=== PATIENT | female | born 1970 | race Caucasian/White ===

== ENCOUNTER → 2020-06-11 08:15 | Outpatient (BNVA) | payer BC, SELFPAY | PROVIDERS: PCP Internal Medicine; Referring Provider Internal Medicine; Visit Provider Physician Assistant | DX: E66.3 Overweight (principal); E78.5 Hyperlipidemia, unspecified; N28.9 Disorder of kidney and ureter, unspecified; G47.33 Obstructive sleep apnea (adult) (pediatric); F41.9 Anxiety disorder, unspecified; Z71.3 Dietary counseling and surveillance; Z98.84 Bariatric surgery status; Z68.28 Body mass index [BMI] 28.0-28.9, adult ==

== ENCOUNTER → 2020-06-18 12:03 | Outpatient (BNVA) | payer BC, SELFPAY | PROVIDERS: Visit Provider Physician Assistant | DX: Z76.89 Persons encountering health services in other specified circumstances (principal) ==

== ENCOUNTER → 2020-06-26 07:55 | Outpatient (BNVA) | payer BC, SELFPAY | PROVIDERS: PCP Nurse Practitioner Gerontology; Visit Provider Physician Assistant | DX: Z76.89 Persons encountering health services in other specified circumstances (principal) ==

== ENCOUNTER 2024-05-05 12:55 | Inpatient (IN) | payer OTHER, SELFPAY ==
--- NOTE | ~2024-05-05 | XR_ITS ---
EXAMINATION: XR ABDOMEN KUB CLINICAL INDICATION: Follow-up for small bowel obstruction COMPARISON: CT abdomen and pelvis on 05/05/2024 TECHNIQUE: AP view of the abdomen. FINDINGS: There are multiple prominent small bowel loops throughout the abdomen, though less prominent than on the prior study. There is contrast previously seen within the small bowel is now visualized throughout the colon and rectum. Multiple surgical clips in the upper abdomen. XR/XR KUB IMPRESSION: Improving small bowel obstruction. Contrast seen within the colon. Electronically signed by: Faith Beltre MD 05/06/2024 09:20 AM EDT
--- NOTE | ~2024-05-05 | CT_ITS ---
EXAMINATION: CT CHEST, ABDOMEN, AND PELVIS WITH CONTRAST CLINICAL INFORMATION: Chest pain. Epigastric pain. History of laparoscopic sleeve gastrectomy. COMPARISON: CT abdomen and pelvis from 08/26/2006.. TECHNIQUE: Multidetector volumetric imaging was performed from the thoracic inlet to the pubic symphysis following the administration of 85 mL Omnipaque 350 intravenous contrast. No contrast reaction reported. Sagittal and coronal reformatted images were obtained on the technologist workstation. This CT examination was performed using dose optimization techniques as appropriate, variously including the following: *Automated exposure control. *Adjustment of mA and/or kV according to patient size (this includes techniques or standardized protocols for targeted exams where dose is matched to indication/reason for exam; i.e. extremities or head). *Use of iterative reconstruction technique. DLP: 931 mGy-cm FINDINGS: CHEST: Lungs: No diffuse or focal lung parenchymal abnormalities. No pleural effusion or pneumothorax. The airways remain patent. Mediastinum: The cardiac structures are normal in appearance. No mediastinal free fluid or gas. No pericardial effusion. No hilar, mediastinal, or axillary lymphadenopathy. Coronary artery calcifications: Absent. ABDOMEN/PELVIS: Liver, Biliary Ducts, and Gallbladder: The liver is normal in size and attenuation without focal hepatic lesions or biliary ductal dilatation. The gallbladder is physiologically distended without radiopaque gallstones, pericholecystic fluid, or significant gallbladder wall thickening. Pancreas: The pancreas is normal in appearance. Adrenal Glands: The adrenal glands are normal in appearance. Spleen: The spleen is normal in appearance. Kidneys and Ureters: The kidneys demonstrate symmetric nephrograms without evidence of nephrolithiasis or hydronephrosis. No ureterolithiasis or hydroureter. Urinary Bladder: The urinary bladder is partially distended without focal wall thickening. No bladder calculi are demonstrated. Gastrointestinal System: Changes of prior sleeve gastrectomy. Moderate dilation of the proximal loops of small bowel, measuring up to 3.6 cm in diameter. There is delay in contrast passage through these loops of small bowel. A transition point is demonstrated in an infraumbilical region of midline diastases of the anterior abdominal wall the heart appears to be a site of prior surgery. The small bowel is largely decompressed beyond this point. The colon is normal in appearance without focal wall thickening or pericolonic inflammatory change. Normal appendix. Genitourinary: Partially calcified 2 cm fibroid within the uterine fundus. No additional adnexal soft tissue masses. Intra-abdominal and Retroperitoneal Spaces: Small volume free fluid surrounding the dilated loops of small bowel in the upper abdomen. There are demonstrated discrete peripherally enhancing intra-abdominal fluid collection. No demonstrated intra-abdominal free gas. No mesenteric, retroperitoneal, or inguinal lymphadenopathy. VASCULATURE: The aorta is of normal contour and caliber. MUSCULOSKELETAL: Transitional vertebral anatomy. There is partial lumbarization of S1. Mild multilevel degenerative changes of the spine. No lytic or sclerotic osseous lesions demonstrated. No soft tissue masses demonstrated. CT/CT abdomen pelvis w IV con IMPRESSION: 1. Small bowel obstruction with transition point demonstrated in the infraumbilical region of midline diastases of the anterior abdominal wall. Small volume free fluid surrounding the dilated loops of small bowel in the upper abdomen. No demonstrated discrete peripherally enhancing intra-abdominal fluid collection. 2. No additional acute abnormalities of the chest, abdomen, or pelvis. Electronically signed by: Phoenix Nieves DO 05/05/2024 09:10 PM EDT
[2024-05-05 12:57] VITALS: BP 118/62; PULSE 71; RESP 18; TEMP 36.6; O2SAT 94; BMI 32.1
--- NOTE | 2024-05-05 13:01 | ED.ABDPAIN ---
HPI - Abdominal Pain General Chief Complaint: Abdominal Pain Stated Complaint: abd pain Time Seen by Provider: 05/05/24 13:15 Source: patient and family Mode of arrival: ambulatory Limitations: no limitations History of Present Illness ED Provider: darian HPI narrative: Patient is a 53-year-old female with history of laproscopic sleeve gastrectomy, abdominal hernia repair presenting to the emergency department with complaint of epigastric abdominal pain which began last night. Patient reports that symptoms began after eating 2 large carrots as she is supposed to be on a high-fiber, low-protein diet for kidney disease. This morning pain increased and became more and more severe until it was 10/[address] to the emergency department she developed sudden onset of nausea and pulled over, vomited clear liquid. States this significantly reduced her pain. Upon arriving to the emergency department she immediately had 1 episode of diarrhea which she describes as ?straight water. ? She states she is scheduled for a barium swallow this week due to ongoing heartburn and regurgitation since having her sleeve gastrectomy. Denies fever. Denies sick contacts. States she only has pain now with palpation. Denies current nausea. MD elicited complaint: abdominal pain Pertinent past history: other Onset (ago): hour(s) Pain Consistency: now resolved Location: epigastric Severity: severe Quality: cramping Radiation: none Migration to: no migration Relieving factors: vomiting Related Data Home Medications ?Medication ?Instructions ?Recorded ?Confirmed fluoxetine 10 mg capsule 10 mg PO DAILY 06/11/20 06/18/20 Allergies Allergy/AdvReac Type Severity Reaction Status Date / Time amoxicillin [AMOXICILLIN] Allergy Unknown RASH Verified 05/05/24 13:02 Sulfa (Sulfonamide Allergy Unknown RASH Verified 05/05/24 13:02 Antibiotics) [SULFA (SULFONAMIDE ANTIBIOTICS)] amoxicillin Allergy Unknown rash Uncoded 03/31/20 00:00 sulfa Allergy Unknown rash Uncoded 03/31/20 00:00 Review of Systems Review of Systems As per HPI. Yes all other systems are reviewed and are negative Constitutional: Reports as per HPI [facility] Past Medical History Medical History (Updated 05/05/24 @ 23:19 by Wayne Hicks) Diverticulosis Colonoscopy causing post-procedural bleeding Obstructive sleep apnea Hyperlipidemia Anxiety Kidney disease Obesity Surgical History (Updated 06/26/20 @ 08:56 by Kayla G. Presley, PA-C) H/O left knee surgery Previous section S/P laparoscopic sleeve gastrectomy Family History Family History (Updated 06/11/20 @ 09:18 by Kevin Kam CMA) Father Obesity Mother HTN (hypertension) Kidney disease Son No problems noted. Social History Social History (Updated 06/11/20 @ 11:10 by Kayla Presley PA-C) Alcohol intake: former Patient Tobacco Use Status: Never used Tobacco Advance Directives: No Advance Directives Information Provided: No Do you have a plan to hurt others: No Plan Nutrition Risks: No Nutritional Risk Physical Exam ED Vital Signs: Vital Signs - 24 hr 05/05/24 12:57 05/05/24 14:17 05/05/24 18:38 Temperature 97.8 F 98.6 F Pulse Rate 71 54 57 Respiratory Rate 18 16 20 Blood Pressure 118/62 150/70 H 141/70 H Pulse Oximetry 94 99 98 Oxygen Delivery Method Room Air Room Air Room Air 05/05/24 19:44 Temperature 97.6 F Pulse Rate 56 Respiratory Rate 20 Blood Pressure 156/67 H Pulse Oximetry 98 Oxygen Delivery Method Room Air BMI result Body Mass Index 32.1 Vital signs have been reviewed and appear to be correct. Blood pressure normal. Heart rate normal. Respiratory rate normal. Temperature normal. Oxygen saturation normal. Const General: cooperative, healthy appearing and no acute distress Orientation/consciousness: oriented to person, oriented to place, oriented to time and patient oriented x3 Limitations: no limitations HENMT Head: Yes normocephalic and Yes atraumatic Ears: external ears normal General nose exam: Normal external nose present Face and sinus: Yes face symmetric Mouth: oropharynx normal and moist mucous membranes Throat: Yes uvula midline Eyes Pupils: Equal, round and reactive pupils present Neck Neck: Yes normal visual inspection and Yes supple Resp Effort & Inspection: normal respiratory effort and able to speak in complete sentences Auscultation: clear to auscultation bilaterally Cardio Rate: regular rate Rhythm: regular rhythm Heart sounds: S1 normal heart sound present and S2 normal heart sound present GI Palpation (GI): Soft to palpation, Tenderness to palpation present (GI) in the epigastrum, no guarding and No Rebound tenderness present Auscultation: normoactive bowel sounds General: Yes no CVA tenderness Back/Spine/Pelvis Back: no CVA tenderness Skin General skin exam: elasticity normal and turgor normal Neuro General: oriented to person, oriented to place, oriented to time, patient oriented x3, moves all extremities, no focal motor deficits and CN's II-XI intact bilaterally Cranial nerves: Yes Equal, round and reactive pupils present Cognition (Neuro): normal cognition Extrem General: Yes full ROM, Yes no pedal edema and Yes no calf tenderness Psych Mental Status: mental status grossly normal Affect: normal affect Thought process: Normal thought process present Course Course Course Narrative: This is an RME performed by Cynthia Grewal CNP: Additional HPI, ROS, PE not included below will be deferred to primary provider. Patient is a 53-year-old female who presents to the emergency department for evaluation of abdominal pain. Reports last night she consumed a large amount of carrots has been experiencing severe epigastric pain nonradiating 06/14. Upon arriving to emergency department before evaluation she vomited reportedly clear colored emesis and had an episode of diarrhea and reports significant improvement in her pain Reevaluation(s) Reevaluation #1: Patient's CT scan shows a small bowel obstruction with transition point. I discussed with Dr. Hermosillo, general surgery. He asked me to discuss with bariatric surgery as well. I spoke to Dr. Cuevas who feels that this obstruction is not related to the sleeve gastrectomy he performed in 2019. He is comfortable with the patient being admitted to the service of Dr. Hermosillo. I rediscussed with Dr. Hermosillo who will admit the patient. The patient was re-evaluated, she reports her pain has nearly resolved after receiving Tylenol, she is not nauseous or vomiting. Ultimately NG tube was deferred at this time Time: 23:17 Medical Decision Making Medical Decision Making MDM Narrative: Patient is a 53-year-old female with history of laproscopic sleeve gastrectomy, abdominal hernia repair presenting to the emergency department with complaint of epigastric abdominal pain which began last night. On exam patient is awake, A+Ox3, VS WNL, afebrile, normal neurological exam without focal deficits, physical exam findings as above. Given reported symptoms and physical exam findings, initial differential includes ACS, intermittent volvulus, hiatal hernia, GERD, PUD. Labs notable for slight leukocytosis, elevated BUN with normal creatinine, negative troponin. EKG shows normal sinus rhythm. Patient signed out to ELANA Fernández pending results of CT chest and abdomen. Differential Diagnosis Differential Diagnoses: The differential diagnosis associated with the presentation includes As per [facility] Admission/Observation Consideration of admission/observation: Escalation of care including admission/observation considered Admission dependent on results of CT chest and A/P Consult Healthcare Provider Management of the patient was discussed with: Last Code Striper Lab Data [facility] Lab Attestation statement: I reviewed the patient's lab results. As per [facility]. 05/05/24 13:08 05/05/24 13:08 Labs: Lab Results 05/05/24 05/05/24 Range/Units 13:08 14:23 WBC 11.1 H (4.8-10.8) X10*3/uL RBC 4.66 (4.20-5.50) X10*6/uL Hgb 13.8 (12.0-16.0) g/dl Hct 41.1 (37.0-47.0) % MCV 88.2 (80.0-98.0) fL MCH 29.6 (27.0-33.0) pg MCHC 33.6 (31.0-35.0) g/dl RDW 13.1 (11.0-16.0) % Plt Count 292 (160-400) X10*3/uL MPV 9.9 (9.4-12.3) fL Immature Gran % (Auto) 0.5 H (0.0-0.4) % Neut % (Auto) 75.8 H (45-73) % Lymph % (Auto) 17.9 L (20-40) % Lander % (Auto) 4.4 (2-11) % Eos % (Auto) 1.2 (0-4) % Baso % (Auto) 0.2 (0-2) % Lymph # (Auto) 2.0 (1.2-4.9) X10*3/uL Lander # (Auto) 0.5 (0.1-1.2) X10*3/uL Eos # (Auto) 0.1 (0.0-0.4) X10*3/uL Baso # (Auto) 0.0 (0.0-0.2) X10*3/uL Abs Immat Gran (auto) 0.06 H (0.00-0.03) X10*3/uL Absolute Neuts (auto) 8.4 H (2.0-8.3) x10*3/uL Absolute Nucleated RBC 0.000 (0.0-0.012) X10*3/uL Nucleated RBC % (auto) 0.0 (0.0-0.2) /100WBC Sodium 141 (135-145) mmol/L Potassium 4.9 (3.3-5.1) mmol/L Chloride 105 (96-108) mmol/L Carbon Dioxide 28 (22-29) mmol/L Anion Gap 13 (12-20) BUN 26 H (9-16) mg/dL Creatinine 1.35 (0.5-1.4) mg/dL Estim Creat Clear Calc 44.2 Estimated GFR 41 Random Glucose 154 H (60-115) mg/dL Calcium 10.4 H (8.4-10.2) mg/dL Magnesium 2.1 (1.6-2.6) mg/dL Total Bilirubin 0.4 (0.0-1.0) mg/dL AST 19 (5-31) U/L ALT 16 (0-31) U/L Alkaline Phosphatase 68 (39-117) U/L Troponin I High Sens < 2.7 (<3.5-17.0) ng/L Total Protein 6.7 (6.5-8.0) g/dL Albumin 4.2 (3.5-5.0) g/dL Lipase 42 (8-78) U/L Urine Color Yellow Urine Appearance Clear Urine pH 5.5 (5.0-9.0) Ur Specific [place] 1.020 (1.005-1.025) Urine Protein 100 (2+) H (Neg-Trace) mg/dL Urine Glucose (UA) Negative (Negative) mg/dL Urine Ketones Trace (Negative) mg/dL Urine Blood Large (3+) H (Negative) Urine Nitrite Negative (Negative) Ur Leukocyte Esterase Trace H (Negative) Urine RBC >20 H (0-2) /HPF Urine WBC 0-5 (0-5) /HPF Ur Squamous Epith Cells 0-2 (0-2) /HPF Urine Bacteria None Seen (None Seen) Hyaline Casts 0-2 (0-2) /LPF Influenza Type A (PCR) NEGATIVE (Negative) Influenza Type B (PCR) NEGATIVE (Negative) RSV RNA Qual (PCR) NEGATIVE (Negative) SARS-CoV-2 RNA (RT-PCR) NEGATIVE (Negative) External Record Review External record reviewed: Inpatient record, Office record and Outpatient record Medications Administered Generic Name Dose Route Start Last Admin Trade Name Sandhya PRN Reason Stop Dose Admin Lactated Ringer's 1,000 mls @ 100 mls/hr 05/05/24 22:15 05/05/24 22:52 Lr IVCONT 100 mls/hr .Q10H AMY Administration Discontinued Medications Generic Name Dose Route Start Last Admin Trade Name Sandhya PRN Reason Stop Dose Admin Acetaminophen 650 mg 05/05/24 19:35 05/05/24 20:01 Acetaminophen Supp 650 Mg Supp.Rect ID 05/05/24 19:36 650 mg ONCE ONE Administration Barium Sulfate 450 ml 05/05/24 18:12 05/05/24 18:12 Barium Sulfate Oral (Henning) 450 Ml Oral.Susp PO 05/05/24 18:13 450 ml ONCE ONE Administration Barium Sulfate 450 ml 05/05/24 18:12 05/05/24 18:12 Barium Sulfate Oral (Henning) 450 Ml Oral.Susp PO 05/05/24 18:13 450 ml ONCE ONE Administration Sodium Chloride 1,000 mls @ 999 mls/hr 05/05/24 14:00 05/05/24 16:18 Ns IV 05/05/24 15:00 Infused .Q1H1M AMY Infusion Sodium Chloride 1,000 mls @ 999 mls/hr 05/05/24 19:15 05/05/24 21:06 Ns IV 05/05/24 20:15 Infused .Q1H1M AMY Infusion Iohexol 100 ml 05/05/24 17:40 05/05/24 17:40 Iohexol 350 Mg/Ml 100 Ml Infus..Btl IV 05/05/24 17:41 85 ml ONCE ONE Administration Morphine Sulfate 4 mg 05/05/24 18:27 05/05/24 18:40 Morphine Sulfate 4 Mg/Ml Cartridge IVPUSH 05/05/24 18:28 Not Given ONCE ONE Protocol Ondansetron HCl 4 mg 05/05/24 18:27 05/05/24 18:40 Ondansetron Hcl 4 Mg/2 Ml Vial IVPUSH 05/05/24 18:28 Not Given ONCE ONE Ondansetron HCl 4 mg 05/05/24 20:29 05/05/24 20:35 Ondansetron Hcl 4 Mg/2 Ml Vial IVPUSH 05/05/24 20:30 4 mg ONCE ONE Administration Pantoprazole Sodium 40 mg 05/05/24 20:29 05/05/24 20:35 Pantoprazole Sodium 40 Mg/10 Ml Vial IVPUSH 05/05/24 20:30 40 mg ONCE ONE Administration Discharge Plan Discharge Clinical Impression: Small bowel obstruction Patient Disposition: Admitted As Inpatient
[2024-05-05 13:14] LABS: MANUAL DIFF FLAG NO
[2024-05-05 13:15] LABS: Basophils Percent Auto 0.2 % (0-2); Eosinophils Absolute Auto 0.1 X10*3/uL (0.0-0.4); Eosinophils Percent Auto 1.2 % (0-4); Hematocrit 41.1 % (37.0-47.0); Hemoglobin 13.8 g/dl (12.0-16.0); Imm Gran Abs Auto 0.06 X10*3/uL (0.00-0.03); Imm Gran Pct Auto 0.5 % (0.0-0.4); Lymphocytes Percent Auto 17.9 % (20-40); Mean Corpuscular HGB Conc 33.6 g/dl (31.0-35.0); Mean Corpuscular Hemoglobin 29.6 pg (27.0-33.0); Mean Corpuscular Volume 88.2 fL (80.0-98.0); Mean Platelet Volume 9.9 fL (9.4-12.3); Monocytes Absolute Auto 0.5 X10*3/uL (0.1-1.2); Monocytes Percent Auto 4.4 % (2-11); Neutrophils Absolute Auto 8.4 x10*3/uL (2.0-8.3); Neutrophils Percent Auto 75.8 % (45-73); Platelet Count 292 X10*3/uL (160-400); Red Blood Count 4.66 X10*6/uL (4.20-5.50); Red Cell Distribution Width 13.1 % (11.0-16.0); White Blood Count 11.1 X10*3/uL (4.8-10.8)
--- NOTE | 2024-05-05 13:16 | ECG_ITS ---
Test Reason : EPIGASTRIC PAIN Blood Pressure : / mmHG Vent. Rate : 061 BPM Atrial Rate : 061 BPM P-R Int : 142 ms QRS Dur : 082 ms QT Int : 448 ms P-R-T Axes : 061 067 064 degrees QTc Int : 450 ms Normal sinus rhythm with sinus arrhythmia Normal ECG No previous ECGs available Referred By: Flores Armstrong Electronically Signed By:OJ JEFFERS
[2024-05-05 13:32] LABS: Alanine Aminotransferase 16 U/L (0-31); Albumin Level 4.2 g/dL (3.5-5.0); Alkaline Phosphatase 68 U/L (39-117); Anion Gap 13 (12-20); Aspartate Amino Transferase 19 U/L (5-31); Bilirubin Total 0.4 mg/dL (0.0-1.0); Blood Urea Nitrogen 26 mg/dL (9-16); Calcium 10.4 mg/dL (8.4-10.2); Carbon Dioxide 28 mmol/L (22-29); Chloride 105 mmol/L (96-108); Creatinine Clr Calc Pharmacy 44.2; Estimated Glomerular Filt Rate 41; Glucose Random 154 mg/dL (60-115); Lipase 42 U/L (8-78); Magnesium 2.1 mg/dL (1.6-2.6); Potassium 4.9 mmol/L (3.3-5.1); Sodium 141 mmol/L (135-145); Total Protein 6.7 g/dL (6.5-8.0)
[2024-05-05 13:50] LABS: Influenza A PCR NEGATIVE (Negative); Influenza B PCR NEGATIVE (Negative); Resp Syncy Virus RNA Qual PCR NEGATIVE (Negative); SARS COV2 PCR INHOUSE NEGATIVE (Negative)
[2024-05-05 14:17] VITALS: BP 150/70; PULSE 54; RESP 16; O2SAT 99
[2024-05-05 14:30] LABS: Appearance Urine Clear; Color Urine Yellow; Glucose Urine UA Negative (Negative); Leukocyte Esterase Urine Trace (Negative); Nitrite Urine Negative (Negative); PH 5.5 (5.0-9.0); UMIC TRIGGER UACC YES; Urine Blood Large (3+) (Negative); Urine Ketones Trace mg/dL (Negative); Urine Protein 100 (2+) mg/dL (Neg-Trace)
[2024-05-05 14:32] LABS: Bacteria Urine None Seen (None Seen); Hyaline Casts Urine 0-2 /LPF (0-2); RBC Urine >20 /HPF (0-2); Squamous Epithelial Cell Urine 0-2 /HPF (0-2); WBC Urine 0-5 /HPF (0-5)
[2024-05-05] MEDS: 0.9 % Sodium Chloride 1,000 ML 999 ML IV ×2 (14:36→19:20)
[2024-05-05 14:52] LABS: Troponin-I High Sensitivity < 2.7 ng/L (<3.5-17.0)
--- NOTE | 2024-05-05 16:30 | PC.NURSE ---
patient had episode of vomiting after drinking PO contrast. ED provider aware / CT techs aware
[2024-05-05] MEDS: iohexoL 350 MG/ML 100 ML INFUS..BTL IV (17:40)
[2024-05-05] MEDS: Barium Sulfate Oral (Berry) 450 ML ORAL.SUSP PO ×2 (18:12)
[2024-05-05 18:38] VITALS: BP 141/70; PULSE 57; RESP 20; TEMP 37; O2SAT 98
[2024-05-05 19:44] VITALS: BP 156/67; PULSE 56; RESP 20; TEMP 36.4; O2SAT 98
[2024-05-05] MEDS: Acetaminophen Supp 650 MG SUPP.RECT PR (20:01)
[2024-05-05] MEDS: ondansetron HCL 4 MG/2 ML VIAL IVPUSH (20:35)
[2024-05-05] MEDS: Pantoprazole Sodium 40 MG/10 ML VIAL IVPUSH (20:35)
[2024-05-05] MEDS: Lactated Ringers 1,000 ML 100 ML IVCONT (22:52)
--- OUTSIDE RECORDS SUMMARY | 2024-05-05 23:00 | XMS_ITS | Continuity of Care Document ---
Author Organization [facility] Address [address] [place] [address]- Care Team Providers Care Instructor Painting Name Role Phone Alice BOYCE, Linda Leal Primary Care Physician ( [phone] [place]counter [facility] [place](s): 11/12/20 - 12/12/20 [facility] [address] [facility] [address]- Allergies, Adverse Reactions, Alerts Substance Reaction Severity Status sulfADIAZINE Active acetaZOLAMIDE Active Medications Bariatric Multivitamins with 45 mg Iron oral capsule 1 capsule, By Mouth, Daily, # 30 capsule, 0 Refills, Maintenance, 05/15/20 8:19:00 EDT, 158, cm, 05/15/20 8:04:00 EDT, Height Start Date: 05/15/20 Status: Ordered FLUoxetine 10 mg oral capsule 10 mg, 1, capsule, By Mouth, Daily, # 90 tablet, Refills 1, Tot. Refills 1, Soft Stop, 05/15/20 8:28:00 EDT, Route to Pharmacy Electronically, [facility]/pharmacy #[id number], 158, cm, 05/15/20 8:04:00 EDT, Height Start Date: 05/15/20 Status: Ordered Problem List Condition Effective Dates Status Health Status Inform ant Anxiety(Confirmed) Active Blood in urine(Confirmed) Active Elevated BUN(Confirmed) Active Carpal tunnel syndrome(Confirmed) Active Fatigue(Confirmed) Active Right foot pain(Confirmed) Active Left knee pain(Confirmed) Active Obesity(Confirmed) Active Poor short term memory(Confirmed) Active Elevated serum creatinine(Confirmed) Active Weight gain(Confirmed) Active Social History Social History Type Response Smoking Status Never (less than 100 in lifetime) entered on: 05/09/19 Sex
--- OUTSIDE RECORDS SUMMARY | 2024-05-05 23:00 | XMS_ITS | Continuity of Care Document ---
Author Organization [facility] Address [address], [address], [address] [place] [address]- Care Team Providers Care Drive In Waiter/Waitress Name Role Phone Alice BOYCE, Linda Leal Primary Care Physician Encounter [facility] [place] [facility] R [id number] Date(s): 07/06/23 - 08/05/23 [facility] [address], [address], [address] [place] [id number] Attending Physician: Jany Sanchez Admitting Physician: AdmtrJany Referring Physician: Admtr ArBaljinder Allergies, Adverse Reactions, Alerts Substance Reaction Severity Status sulfADIAZINE Active acetaZOLAMIDE Active Immunizations Given and Recorded Vaccine Date Status Refusal Reason SARS-CoV-2 (COVID-19) mRNA BNT-162b2 vac 06/05/21 Recorded SARS-CoV-2 (COVID-19) mRNA BNT-162b2 vac 05/15/21 Recorded tetanus/diphtheria/pertussis, acel(Tdap) 09/26/14 Recorded Medications Bariatric Multivitamins with 45 mg Iron oral capsule 1 capsule, By Mouth, Daily, # 30 capsule, 0 Refills, Maintenance, 05/15/20 8:19:00 EDT, 158, cm, 05/15/20 8:04:00 EDT, Height Start Date: 05/15/20 Status: Ordered FLUoxetine 10 mg oral capsule 1, capsule, By Mouth, Daily, # 90 capsule, Refills 0, Tot. Refills 0, Maintenance, 07/19/23 12:46:00 EST, Route to Pharmacy Electronically, [facility]/pharmacy #[id number], 158, cm, 07/06/23 13:54:00 EDT, Height Start Date: 07/19/23 Status: Ordered Problem List Condition Confirmation Course Effective Dates Status Health St atus Informant Anxiety Confirmed Active Blood in urine Confirmed Active Elevated BUN Confirmed Active Carpal tunnel syndrome Confirmed Active CKD (chronic kidney disease) stage 3, GFR 30-59 ml/min Confirmed Active Fatigue Confirmed Active Right foot pain Confirmed Active IgA nephropathy Confirmed Active IgA nephropathy Confirmed Active Left knee pain Confirmed Active Obese class I Confirmed Active Obesity Confirmed Active Poor short term memory Confirmed Active Elevated serum creatinine Confirmed Active Weight gain Confirmed Active Social History Social History Type Response Smoking Status Never (less than 100 in lifetime) entered on: 05/09/19 Sex Patient Care team information Care Team Personnel Name: Alice BOYCE, Linda Leal Position: [facility] PCO Associate Professional Member Role: PCP Address: Address: [address] [place] [address] [place] [address]- Care Team Related Persons Name: JO MONROY Name: CONSTANZA MENDEZ Address: home [address] [place] [id number]
--- OUTSIDE RECORDS SUMMARY | 2024-05-05 23:00 | XMS_ITS | Continuity of Care Document ---
Author Organization [facility] Address [address] [place] [address]- Care Team Providers Care Stone Mill Operator Name Role Phone Alice BOYCE, Linda Leal Primary Care Physician [place] [facility] [place] 09/16/21 - 10/16/21 [facility] [address] [place] [address]- Attending Physician: Jany Sanchez Admitting Physician: AdmtrJany Referring Physician: Admtr Ar8 Allergies, Adverse Reactions, Alerts Substance Reaction Severity Status sulfADIAZINE Active acetaZOLAMIDE Active Medications Azithromycin 5 Day Dose Pack 250 mg oral tablet 1 pack/packet, By Mouth, Once, # 6 tablet, 0 Refills, Soft Stop, 09/17/21 11:12:00 EST, Tablet, [facility]/pharmacy #[id number], Partial fill upon patient request if the prescription is for a schedule II opioid drug., 158, cm, 11/11/20 8:39:00 EST, Height Start Date: 09/17/21 Status: Ordered Bariatric Multivitamins with 45 mg Iron oral capsule 1 capsule, By Mouth, Daily, # 30 capsule, 0 Refills, Maintenance, 05/15/20 8:19:00 EDT, 158, cm, 05/15/20 8:04:00 EDT, Height Start Date: 05/15/20 Status: Ordered FLUoxetine 10 mg oral capsule 1, capsule, By Mouth, Daily, # 90 capsule, Refills 1, Tot. Refills 1, Maintenance, 08/27/21 10:59:00 EST, Route to Pharmacy Electronically, [facility]/pharmacy #[id number], 158, cm, 11/11/20 8:39:00 EST, Height Start Date: 08/27/21 Status: Ordered Problem List Condition Effective Dates [...]
--- OUTSIDE RECORDS SUMMARY | 2024-05-05 23:00 | XMS_ITS | Continuity of Care Document ---
Author Organization [facility] Address [address] [place] [address]- Care Team Providers Care [employer] Planners Name Role Phone Alice BOYCE, Linda Leal Primary Care Physician ( [phone] Encounter [facility] [place] Date(s): 11/11/20 - 12/11/20 [facility] [address] [place] [address]- Attending Physician: Jany Sanchez Admitting Physician: AdmtrJany Referring Physician: Admtr, Ar8 Allergies, Adverse Reactions, Alerts Substance Reaction [...] 05/15/20 8:28:00 EDT, Route to Pharmacy Electronically, [facility]/pharmacy #[id number], 158, cm, 05/15/20 8:04:00 EDT, Height Start [...]
--- OUTSIDE RECORDS SUMMARY | 2024-05-05 23:00 | XMS_ITS | Continuity of Care Document ---
Author Organization [facility] Address [address] [place] [address]- Care Team Providers Care Bulk Tank Car Unloader Name Role Phone Alice BOYCE, Linda Leal Primary Care Physician Encounter [facility] [place] Date(s): 09/16/21 - 09/23/21 [facility] [address] [place] [address]- Attending Physician: Tete Prieto MD Referring Physician: Linda Jenkins NP Allergies, Adverse Reactions, Alerts Substance Reaction Severity Status sulfADIAZINE Active acetaZOLAMIDE Active Medications Azithromycin 5 Day Dose Pack 250 mg oral tablet 1 pack/packet, By Mouth, Once, # 6 tablet, 0 Refills, Soft Stop, 09/17/21 11:12:00 EST, Tablet, [facility]/pharmacy #[id number], Partial fill upon patient request if [...]
--- OUTSIDE RECORDS SUMMARY | 2024-05-05 23:00 | XMS_ITS | Continuity of Care Document ---
Author Organization [facility] Address [address] [facility] [place] [address]- Care Team Providers Care Coke Burner Name Role Phone Alice PLASTERER SPOT, Linda Leal Primary Care Physician Encounter 11/12/20 - 11/19/20 [facility] [address], [address] [place] [address]- Attending Physician: Nilay BOYCE, Sari Bah Admitting Physician: Nilay BOYCE, Sari Bah Referring Physician: Nilay BOYCE, Sari Bah Allergies, Adverse Reactions, Alerts Substance Reaction Severity [...] 05/15/20 8:28:00 EDT, Route to Pharmacy Electronically, [facility]/pharmacy #[id number], 158, cm, 05/15/20 8:04:00 EDT, Height Start [...]
[2024-05-06 06:33] VITALS: BP 137/74; PULSE 64; RESP 16; TEMP 36.7; O2SAT 97
--- NOTE | 2024-05-06 08:59 | P.HPGS_ITS ---
History of Present Illness History of Present Illness Date of Service: 05/08/24 Chief complaint: partial small bowel obstruction Narrative: Mai Thomas is a 53 year old female with a history of anxiety, chronic kidney disease, obesity, admitted via the ER last night because of abdominal pain. He says that this started late Tuesday night which was about 24 hours prior to admission. She says that had eaten a lot of carrots and fiber and she started to have pain in the epigastric area. She says that this persisted throughout the day yesterday as well so she decided to come to the ER. She said that she had some vomiting about 1 or 2 episodes of small amounts of bile She says that when she was in the ER last night, she started to have bowel movements and this resolved her pain She has had no pain since last night. She has been passing good amounts of flatus. She actually has had bowel movements throughout the night as well She has a history of sleeve gastrectomy done laparoscopically. She also had a hysterectomy and repair of a hernia on the lower abdomen. Currently she says she does not have any pain at all. Review of Systems Constitutional: Constitutional: Denies chills and Denies fever(s) Cardiovascular: Cardiovascular: Denies chest pain, Denies dyspnea and Denies dyspnea on exertion Respiratory: Respiratory: Denies cough, Denies dyspnea and Denies dyspnea on exertion Gastrointestinal: Gastrointestinal: Denies hematochezia and Denies change in bowel habits Genitourinary: Genitourinary: Denies hematuria Musculoskeletal: Musculoskeletal: Denies back pain and Denies limited range of motion Neurologic: Denies focal weakness and Denies convulsions Psychiatric: Psychiatric: Denies depression and Denies mood swings [facility] Past Medical History Medical History (Updated 05/06/24 @ 09:01 by Migue Hermosillo MD) Partial small bowel obstruction Diverticulosis Colonoscopy causing post-procedural bleeding Obstructive sleep apnea Hyperlipidemia Anxiety Kidney disease Obesity Family History Family History (Updated 06/11/20 @ 09:18 by Kevin Kam CMA) Father Obesity Mother HTN (hypertension) Kidney disease Son No problems noted. Surgical History Surgical History (Updated 06/26/20 @ 08:56 by Kayla Presley PA-C) H/O left knee surgery Previous section S/P laparoscopic sleeve gastrectomy Social History Social History (Updated 06/11/20 @ 11:10 by Kayla Presley PA-C) Alcohol intake: former Patient Tobacco Use Status: Never used Tobacco Meds Allergies Allergy/AdvReac Type Severity Reaction Status Date / Time amoxicillin [AMOXICILLIN] Allergy Unknown RASH Verified 05/05/24 13:02 Sulfa (Sulfonamide Allergy Unknown RASH Verified 05/05/24 13:02 Antibiotics) [SULFA (SULFONAMIDE ANTIBIOTICS)] amoxicillin Allergy Unknown rash Uncoded 03/31/20 00:00 sulfa Allergy Unknown rash Uncoded 03/31/20 00:00 Active Medications: Current Medications Acetaminophen (Acetaminophen 325 Mg Tablet) 650 mg PO Q6H PRN PRN Reason: Pain, Mild (Pain Scale 1-3), fever or headache Calcium Carbonate (Calcium Carbonate 750 Mg Tab.Chew) 750 mg PO Q4H PRN PRN Reason: Heartburn Heparin Sodium (Porcine) (Heparin Sodium,Porcine 5,000 Unit/Ml Vial) 5,000 unit SUBCUT Q8H [facility] Lactated Ringer's (Lr) 1,000 mls @ 100 mls/hr IVCONT .Q10H [facility] Last Infusion: 05/06/24 08:50 Dose: Infused Magnesium Hydroxide (Milk Of Magnesia 30 Ml Oral.Susp) 30 ml PO DAILY PRN PRN Reason: Constipation Melatonin (Melatonin 3 Mg Tablet) 6 mg PO BEDTIME PRN PRN Reason: Insomnia Morphine Sulfate (Morphine Sulfate 4 Mg/Ml Cartridge) 3 mg IVPUSH Q4H PRN; Protocol PRN Reason: Pain, Severe (Pain Scale 7-10) Ondansetron HCl (Ondansetron Hcl 4 Mg/2 Ml Vial) 4 mg IVPUSH Q8H PRN PRN Reason: nausea Sodium Chloride (0.9 % Sodium Chloride Flush 3 Ml Syringe) 3 ml IVFLUSH QSHIFT [facility] Last Admin: 05/06/24 08:13 Dose: Not Given Home Medications ?Medication ?Instructions ?Recorded ?Confirmed ?Last Taken ?Type fluoxetine 10 mg capsule 10 mg PO DAILY 06/11/20 05/06/24 05/04/24 History multivitamin with minerals-folic 2 tab PO DAILY 05/06/24 05/06/24 05/04/24 History acid 200 mcg chewable tablet (Multivitamin Gummies) Physical Exam Vital Signs: Vital Signs: Last Vital Signs Temp 98.1 F 05/06/24 06:33 Pulse 64 05/06/24 06:33 Resp 16 05/06/24 06:33 BP 137/74 05/06/24 06:33 Pulse Ox 97 05/06/24 06:33 O2 Del Method Room Air 05/06/24 06:33 BMI result Body Mass Index 32.1 Const: Other: Appears well General: comfortable and no acute distress Orientation/consciousness: patient oriented x3 Neck: Neck: Yes no lymphadenopathy Resp: Auscultation: clear to auscultation bilaterally Cardio: Rhythm: regular rhythm GI: Palpation (GI): Soft to palpation, nontender and no guarding Neuro: General: patient oriented x3 Results Results Labs: Short CBC 05/05/24 Range/Units 13:08 WBC 11.1 H (4.8-10.8) X10*3/uL Hgb 13.8 (12.0-16.0) g/dl Hct 41.1 (37.0-47.0) % Plt Count 292 (160-400) X10*3/uL BMP 05/05/24 13:08 Sodium 141 Potassium 4.9 Chloride 105 Carbon Dioxide 28 BUN 26 H Creatinine 1.35 Calcium 10.4 H Liver Function 05/05/24 Range/Units 13:08 Total Bilirubin 0.4 (0.0-1.0) mg/dL AST 19 (5-31) U/L ALT 16 (0-31) U/L Alkaline Phosphatase 68 (39-117) U/L Albumin 4.2 (3.5-5.0) g/dL Urine 05/05/24 Range/Units 14:23 Urine Color Yellow Urine Appearance Clear Urine pH 5.5 (5.0-9.0) Ur Specific [place] 1.020 (1.005-1.025) Urine Protein 100 (2+) H (Neg-Trace) mg/dL Urine Glucose (UA) Negative (Negative) mg/dL Abdomen CT scan report/results: report reviewed and image reviewed CT scan - pelvis: report reviewed and image reviewed Assessment and Plan (1) Partial small bowel obstruction: Status: Acute 53 year female admitted because of abdominal pain. She CT scan done in the ER last night. The did show some significant small bowel dilatation proximally with what appeared to be a treated some point lower abdomen. I have reviewed her CAT scan images. She had good amounts of air distally colon. There is some diastasis on the lower abdomen but no significant hernia. She currently feels well and has had no pain since last night. Her abdominal exam is very benign and she does not have any significant tenderness. She has passing flatus and has had BMs overnight She likely had partial small-bowel obstruction adhesions in the lower abdomen has suggested by her CAT scan images. She currently is asymptomatic I will start her on clear liquids and we will advance this if she tolerates this Abdominal exam is very benign. She is completely asymptomatic at this time. I have also looked at her follow up KUB this morning and oral contrast is now all the way in the colon and rectum . She understands the plan well. Quality Stroke Does the patient have a stroke diagnosis?: No VTE Prior VTE?: No VTE Risk Level:: Medical - moderate - high VTE Device Contraindication: N/A - Device Ordered VTE Drug Contraindication: N/A - Med Ordered Procedures Date of Service Date of Service: 05/08/24
[2024-05-06] MEDS: Lactated Ringers 1,000 ML 100 ML IVCONT (09:57)
[2024-05-06 10:02] VITALS: BP 123/62; PULSE 69; RESP 16; TEMP 37; O2SAT 100
--- NOTE | 2024-05-06 10:14 | PHA.MEDREC ---
Pharmacy Consult ? Medication Reconciliation Pharmacy has completed the medication reconciliation. Spoke to patient and confirmed medication list.
[2024-05-06] MEDS: Heparin Sodium,Porcine 5,000 UNIT/ML VIAL 5000 UNIT SUBCUT (10:40)
--- NOTE | 2024-05-06 12:32 | PM.EVENT ---
Event Note Date of Service: 05/06/24 Event Note: states she feels great tolerating clear liquids well passing flatus denies abdl pain or nausea abd soft, nontender ok to dc home when tolerating regular diet she says she has a ffup with Dr Wilder as well Time Spent With Patient Time: Total time managing care of this patient today ____ minutes.
--- NOTE | 2024-05-10 11:38 | P.DS_ITS ---
DS: Providers Provider Date of Service: 05/06/24 Date of admission: 05/05/24 22:11 Primary care physician: Linda Jenkins CNP DS: Diagnosis Discharge Diagnosis (1) Partial small bowel obstruction: Status: Acute DS: Summary Hospital Course Hospital Course: [age] year old female admitted on the midnight of 05/05/2024 because of abdominal pain. Her CAT scan showed some small bowel dilatation suggestive of partial small-bowel obstruction. Because of this finding, she was admitted and kept NPO. However, her pain had resolved that same night. When I saw her in the morning, she was completely asymptomatic. She was passing flatus. Her abdomen soft and benign and nontender. I started her on clear liquids and this was advanced that same day. She continued to tolerate this. She was therefore discharged later that afternoon. At the time of her discharge, she was tolerating regular diet, did not have any tenderness and had no nausea or vomiting. Her CT scan findings were consistent with partial small-bowel obstruction likely from adhesions from her her previous abdominal surgery. This had resolved. Time Attestation Discharge Coordination Time (in mins): 30 min Quality: Safe Use of Opioids Does Pt have an Active Cancer Diagnosis on the Problem List?: No Quality: Stroke Does the patient have a stroke diagnosis?: No Physical Exam Vital Signs: Vital Signs: Last Vital Signs Temp 98.6 F 05/06/24 10:02 Pulse 69 05/06/24 10:02 Resp 16 05/06/24 10:02 BP 123/62 05/06/24 10:02 Pulse Ox 100 05/06/24 10:02 O2 Del Method Room Air 05/06/24 10:02 BMI result Body Mass Index 32.1 Const: General: comfortable and no acute distress Orientation/consciousness: patient oriented x3 Neck: Neck: Yes no lymphadenopathy Resp: Auscultation: clear to auscultation bilaterally Cardio: Rhythm: regular rhythm GI: Palpation (GI): Soft to palpation, nontender and no guarding Neuro: General: patient oriented x3 DS: Data Data Completed and Pending Completed studies during hospitalization [Text1]: Laboratory Results WBC 11.1 X10*3/uL (4.8-10.8) H 05/05/24 13:08 RBC 4.66 X10*6/uL (4.20-5.50) 05/05/24 13:08 Hgb 13.8 g/dl (12.0-16.0) 05/05/24 13:08 Hct 41.1 % (37.0-47.0) 05/05/24 13:08 MCV 88.2 fL (80.0-98.0) 05/05/24 13:08 MCH 29.6 pg (27.0-33.0) 05/05/24 13:08 MCHC 33.6 g/dl (31.0-35.0) 05/05/24 13:08 RDW 13.1 % (11.0-16.0) 05/05/24 13:08 Plt Count 292 X10*3/uL (160-400) 05/05/24 13:08 MPV 9.9 fL (9.4-12.3) 05/05/24 13:08 Immature Gran % (Auto) 0.5 % (0.0-0.4) H 05/05/24 13:08 Neut % (Auto) 75.8 % (45-73) H 05/05/24 13:08 Lymph % (Auto) 17.9 % (20-40) L 05/05/24 13:08 [place] % (Auto) 4.4 % (2-11) 05/05/24 13:08 Eos % (Auto) 1.2 % (0-4) 05/05/24 13:08 Baso % (Auto) 0.2 % (0-2) 05/05/24 13:08 Lymph # (Auto) 2.0 X10*3/uL (1.2-4.9) 05/05/24 13:08 [place] # (Auto) 0.5 X10*3/uL (0.1-1.2) 05/05/24 13:08 Eos # (Auto) 0.1 X10*3/uL (0.0-0.4) 05/05/24 13:08 Baso # (Auto) 0.0 X10*3/uL (0.0-0.2) 05/05/24 13:08 Abs Immat Gran (auto) 0.06 X10*3/uL (0.00-0.03) H 05/05/24 13:08 Absolute Neuts (auto) 8.4 x10*3/uL (2.0-8.3) H 05/05/24 13:08 Absolute Nucleated RBC 0.000 X10*3/uL (0.0-0.012) 05/05/24 13:08 Nucleated RBC % (auto) 0.0 /100WBC (0.0-0.2) 05/05/24 13:08 Sodium 141 mmol/L (135-145) 05/05/24 13:08 Potassium 4.9 mmol/L (3.3-5.1) 05/05/24 13:08 Chloride 105 mmol/L (96-108) 05/05/24 13:08 Carbon Dioxide 28 mmol/L (22-29) 05/05/24 13:08 Anion Gap 13 (12-20) 05/05/24 13:08 BUN 26 mg/dL (9-16) H 05/05/24 13:08 Creatinine 1.35 mg/dL (0.5-1.4) 05/05/24 13:08 Estim Creat Clear Calc 44.2 05/05/24 13:08 Estimated GFR 41 05/05/24 13:08 Random Glucose 154 mg/dL (60-115) H 05/05/24 13:08 Calcium 10.4 mg/dL (8.4-10.2) H 05/05/24 13:08 Magnesium 2.1 mg/dL (1.6-2.6) 05/05/24 13:08 Total Bilirubin 0.4 mg/dL (0.0-1.0) 05/05/24 13:08 AST 19 U/L (5-31) 05/05/24 13:08 ALT 16 U/L (0-31) 05/05/24 13:08 Alkaline Phosphatase 68 U/L (39-117) 05/05/24 13:08 Troponin I High Sens < 2.7 ng/L (<3.5-17.0) 05/05/24 14:23 Total Protein 6.7 g/dL (6.5-8.0) 05/05/24 13:08 Albumin 4.2 g/dL (3.5-5.0) 05/05/24 13:08 Lipase 42 U/L (8-78) 05/05/24 13:08 Urine Color Yellow 05/05/24 14:23 Urine Appearance Clear 05/05/24 14:23 Urine pH 5.5 (5.0-9.0) 05/05/24 14:23 Ur Specific [place] 1.020 (1.005-1.025) 05/05/24 14:23 Urine Protein 100 (2+) mg/dL (Neg-Trace) H 05/05/24 14:23 Urine Glucose (UA) Negative mg/dL (Negative) 05/05/24 14:23 Urine Ketones Trace mg/dL (Negative) 05/05/24 14:23 Urine Blood Large (3+) (Negative) H 05/05/24 14:23 Urine Nitrite Negative (Negative) 05/05/24 14:23 Ur Leukocyte Esterase Trace (Negative) H 05/05/24 14:23 Urine RBC >20 /HPF (0-2) H 05/05/24 14:23 Urine WBC 0-5 /HPF (0-5) 05/05/24 14:23 Ur Squamous Epith Cells 0-2 /HPF (0-2) 05/05/24 14:23 Urine Bacteria None Seen (None Seen) 05/05/24 14:23 Hyaline Casts 0-2 /LPF (0-2) 05/05/24 14:23 Influenza Type A (PCR) NEGATIVE (Negative) 05/05/24 13:08 Influenza Type B (PCR) NEGATIVE (Negative) 05/05/24 13:08 RSV RNA Qual (PCR) NEGATIVE (Negative) 05/05/24 13:08 SARS-CoV-2 RNA (RT-PCR) NEGATIVE (Negative) 05/05/24 13:08 Impressions Abdomen/Pelvis CT 05/05/24 17:07 IMPRESSION: 1. Small bowel obstruction with transition point demonstrated in the infraumbilical region of midline diastases of the anterior abdominal wall. Small volume free fluid surrounding the dilated loops of small bowel in the upper abdomen. No demonstrated discrete peripherally enhancing intra-abdominal fluid collection. 2. No additional acute abnormalities of the chest, abdomen, or pelvis. Electronically signed by: Phoenix Nieves DO 05/05/2024 09:10 PM EDT RP Chest CT 05/05/24 17:07 IMPRESSION: 1. Small bowel obstruction with transition point demonstrated in the infraumbilical region of midline diastases of the anterior abdominal wall. Small volume free fluid surrounding the dilated loops of small bowel in the upper abdomen. No demonstrated discrete peripherally enhancing intra-abdominal fluid collection. 2. No additional acute abnormalities of the chest, abdomen, or pelvis. Electronically signed by: Phoenix Nieves DO 05/05/2024 09:10 PM EDT RP KUB X-Ray 05/06/24 08:45 IMPRESSION: Improving small bowel obstruction. Contrast seen within the colon. Electronically signed by: Faith Beltre MD 05/06/2024 09:20 AM EDT RP Discharge Plan Discharge Anticipated Discharge Date/Time: 05/06/24 14:00 Patient Disposition: Home, Self-Care Discharge Diagnosis: partial small bowel obstruction Referrals: Linda Jenkins CNP [Primary Care Provider] - 1 Week Discharge Medications: Continued multivit with min-folic acid [Multivitamin Gummies] 200 mcg Tablet,Chewable 2 tab PO DAILY fluoxetine 10 mg capsule 10 mg PO DAILY Discharge Orders: Discharge Order (Routine); Ordered 05/06/24 Ordered By: Migue Hermosillo Diet: Advance to usual diet Activity on Discharge: As tolerated Stand Alone Forms: Patient Portal Discharge page Print Language: British Care Plan Goals: return to baseline Health Concerns: hx of depression partial SBO Plan of Treatment: ffup with PCP Assessment: doing very well Discharge Date/Time: 05/06/24 17:16
== END 2024-05-06 17:16 | disposition home or self-care (01) | DRG 390 ==
LOC: HO.ED 16:20 → HO.EDOVER 22:59
PROVIDERS: Nurse Practitioner Family; Registered Nurse Emergency; Admitting Provider Surgery; Emergency Provider Emergency Medicine; PCP Nurse Practitioner Gerontology; Visit Provider Surgery
DX: K56.51 Intestinal adhesions [bands], with partial obstruction (principal); G47.33 Obstructive sleep apnea (adult) (pediatric); F41.9 Anxiety disorder, unspecified; Z20.822 Contact with and (suspected) exposure to COVID-19; Z98.84 Bariatric surgery status; Z79.899 Other long term (current) drug therapy
CPT/HCPCS: 0241U; 36415; 71260; 74018; 74177; 80053; 81001; 83690; 83735; 84484; 85025; 93005; 99285; J1644; J2405; J2470; J7120; Q9967

== ENCOUNTER → 2024-05-05 22:11 | Outpatient (BNV) | payer OTHER, SELFPAY | PROVIDERS: Admitting Provider Surgery; Emergency Provider Emergency Medicine; PCP Nurse Practitioner Gerontology; Visit Provider Surgery | DX: K56.600 Partial intestinal obstruction, unspecified as to cause (principal) | CPT/HCPCS: 99235; 99499 ==